=== PATIENT | female | born 2000 | race African-American/Black ===

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

== ENCOUNTER 2020-03-22 12:06 | Emergency (ER) | payer OTHER ==
[2020-03-22 12:11] VITALS: TEMP 98.4
[2020-03-22] MEDS ORDERED: ONDANSETRON ODT 4 MG TAB PO STA (12:28)
--- NOTE | 2020-03-22 12:30 | ED ---
General Adult HPI - General Chief complaint: Nausea/Vomiting/Diarrhea Stated complaint: Vomiting, cough, runny nose Time Seen by Provider: 03/22/20 12:18 Source: patient, RN notes reviewed Mode of arrival: ambulatory Limitations: no limitations - History of Present Illness Initial comments: Patient is a pleasant 19-year-old female presenting to the emergency Department with several complaints. Onset of symptoms was 4 days ago. Patient does have chills fatigue and myalgias. Patient did have headache. Patient does have runny nose and cough. Cough is dry nonproductive. Patient does have nausea and is vomiting around once per day. No abdominal pain. No missed periods. - Related Data Allergies Allergy/AdvReac Type Severity Reaction Status Date / Time No Known Allergies Allergy Verified 03/22/20 12:09 Review of Systems ROS Statement: Those systems with pertinent positive or pertinent negative responses have been documented in the HPI. ROS Other: All systems not noted in ROS Statement are negative. Constitutional: Reports: chills. Denies: fever Eyes: Denies: eye pain ENT: Reports: congestion. Denies: ear pain Respiratory: Reports: cough. Denies: dyspnea Cardiovascular: Denies: chest pain Endocrine: Reports: fatigue Gastrointestinal: Reports: nausea, vomiting. Denies: abdominal pain Genitourinary: Denies: dysuria Musculoskeletal: Denies: back pain Skin: Denies: rash Neurological: Denies: weakness Past Medical History Past Medical History: No Reported History History of Any Multi-Drug Resistant Organisms: None Reported Past Surgical History: No Surgical Hx Reported Past Psychological History: No Psychological Hx Reported Smoking Status: Never smoker Past Alcohol Use History: None Reported Past Drug Use History: None Reported General Exam Limitations: no limitations General appearance: alert, in no apparent distress Head exam: Present: normocephalic Eye exam: Present: normal appearance Neck exam: Present: normal inspection Respiratory exam: Present: normal lung sounds bilaterally Cardiovascular Exam: Present: regular rate, normal rhythm GI/Abdominal exam: Present: soft. Absent: distended, tenderness, guarding, rebound, rigid Back exam: Present: normal inspection Neurological exam: Present: alert Psychiatric exam: Present: normal affect, normal mood Skin exam: Present: normal color Course Vital Signs 03/22/20 12:09 Temperature 98.4 F Pulse Rate 88 Respiratory 16 Rate Blood Pressure 130/81 O2 Sat by Pulse 100 Oximetry Medical Decision Making - Medical Decision Making Patient updated on results and need for follow-up. Patient recommended self quarantining until coronavirus test results returned negative. Disposition Clinical Impression: Viral syndrome, Nausea and vomiting Disposition: HOME SELF-CARE Condition: Stable Instructions (If sedation given, give patient instructions): Acute Nausea and Vomiting (ED), Viral Syndrome (ED) Additional Instructions: Hwmu-iwt-gguzysg vitamin C and vitamin D and zinc. Vmzh-jhk-tdtiuxa Tylenol as needed for fever or chills or muscle aches. Return for difficulty breathing, increased vomiting or not tolerating fluids, worsening symptoms or other concerns. Please self quarantine until coronavirus test results are returned as negative. No work until coronavirus test is negative. Is patient prescribed a controlled substance at d/c from ED?: No Referrals: Dina Ramírez MD [STAFF PHYSICIAN] - 1-2 days Time of Disposition: 13:18
--- NOTE | 2020-03-22 12:47 | XR ---
EXAMINATION TYPE: XR chest 1V portable DATE OF EXAM: 03/22/2020 COMPARISON: NONE HISTORY: Cough. Vomiting and nausea for 5 days. TECHNIQUE: Single AP portable frontal view of the chest is obtained. FINDINGS: There is no focal air space opacity, pleural effusion, or pneumothorax seen. The cardiac silhouette size is within normal limits. The osseous structures are intact. IMPRESSION: No acute process.
[2020-03-22] MEDS ORDERED: ONDANSETRON 4 MG ODT STARTER PACK 2 TAB BTL PO STA (13:18)
[2020-03-22 13:39] VITALS: BP 108/75; PULSE 68; RESP 18
== END 2020-03-22 13:45 | disposition home or self-care (01) ==
LOC: EC 12:06
DX: B34.9 Viral infection, unspecified (principal); Z20.828 Contact with and (suspected) exposure to other viral communicable diseases
CPT/HCPCS: 71045; 99284; U0003; S0119

== ENCOUNTER 2020-05-09 09:43 | Emergency (ER) | payer OTHER ==
[2020-05-09 10:07] VITALS: BP 101/62; PULSE 81; RESP 16; TEMP 97.9
[2020-05-09] MEDS ORDERED: METOCLOPRAMIDE 5 MG/ML 2 ML VIAL IVP STA (10:24)
[2020-05-09] MEDS ORDERED: diphenhydrAMINE 50 MG/ML 1 ML VIAL IVP STA (10:24)
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
== END 2020-05-09 12:14 | disposition home or self-care (01) ==
LOC: EC 09:43
DX: S16.1XXA Strain of muscle, fascia and tendon at neck level, initial encounter (principal); M54.5 Low back pain; V43.52XA Car driver injured in collision with other type car in traffic accident, initial encounter; Y92.410 Unspecified street and highway as the place of occurrence of the external cause
CPT/HCPCS: 72100; 72125; 99284